=== PATIENT | female | born 1995 | race Two or more races ===

== ENCOUNTER 2025-09-07 23:32 | Inpatient (IN) | payer MEDICAID, SELFPAY ==
[2025-09-07 23:47] VITALS: BP 130/76; PULSE 83; RESP 100; RESP 18; TEMP 36.7; BMI 21.7
[2025-09-07 23:53] VITALS: BP 130/76; PULSE 71; PULSE 74; O2SAT 100
[2025-09-07 23:58] VITALS: PULSE 75; O2SAT 100
[2025-09-08] VITALS (32 sets, daily range): BP systolic 96–147; BP diastolic 58–82; PULSE 63–107; RESP 16–100; TEMP 36.7–37.3; O2SAT 89–99; BMI 21.7
--- NOTE | 2025-09-08 00:22 | XR_ITS ---
Examination: Complete OB ultrasound greater than 14 weeks Date and time of exam: September 08, 2025, 0102 hours INDICATIONS: Pelvic contractions today, labor evaluation Findings: Viable intrauterine single fetus with single amniotic sac presentation cephalic Cardiac motion 157 bpm Placenta maternal left anterior grade 3 Umbilical cord is insertion 3 vessel seen Amniotic fluid index 11.8 cm Cervix not visualized Ovaries obscured by the fetus. Composite estimated gestational age based on BPD, head circumference, abdominal circumference, femur length is 36 weeks 6 days Estimated weight 2715 g. Survey of intracranial anatomy, spinal anatomy, abdominal anatomy, four-chamber heart performed with no abnormalities identified. Impression: Viable intrauterine gestation cephalic presentation.
[2025-09-08 01:01] LABS: Amphetamine/Metham Scrn,Ur OB Negative (Negative); Benzoylecgonine Screen, Ur OB Negative (Negative); Opiate Screen,Urine OB Negative (Negative); THC Screen,Urine OB Negative (Negative)
[2025-09-08] MEDS: Ampicillin Inj 2,000 MG in SODIUM CHLORIDE 0.9% (POP) 100 ML 200 MG IV (02:53)
[2025-09-08 02:57] LABS: Basophils # (Auto) 0.0 Thou/mm3 (0.0-0.2); Basophils % (Auto) 0 % (0-2.5); Eosinophils # (Auto) 0.0 Thou/mm3 (0.0-0.5); Eosinophils % (Auto) 0 % (0-10); Hematocrit 33.8 % (36.0-46.0); Hemoglobin 11.4 g/dL (12.0-16.0); Immature Granulocytes Auto 0.05 Thou/mm3 (0.00-0.00); Lymphocytes # (Auto) 1.6 Thou/mm3 (1.0-4.8); Lymphocytes % (Auto) 18 % (10-50); Mean Corpuscular HGB Conc 33.7 g/dl (31.0-37.0); Mean Corpuscular Hemoglobin 28.6 pg (25.0-35.0); Mean Corpuscular Volume 85 fL (80-100); Monocytes # (Auto) 0.6 Thou/mm3 (0.0-0.8); Monocytes % (Auto) 6 % (0-12); Neutrophils # (Auto) 6.6 Thou/mm3 (1.8-7.7); Neutrophils % (Auto) 75 % (37-80); Nucleated Red Blood Cell # 0.00 Thou/mm3 (0.00-0.00); Nucleated Red Blood Cell % 0 /100 WBC (0); Platelet Count 152 Thou/mm3 (140-440); RDW Standard Deviation 49.1 fL (36.4-46.3); Red Blood Count 3.99 Miln/mm3 (4.00-5.20); White Blood Count 8.9 Thou/mm3 (3.6-11.0)
[2025-09-08] MEDS: fentaNYL CIT INJ 50 mCg/ML AMP 2ML 100 MCG IVP (03:07)
[2025-09-08 03:09] LABS: Hepatitis B Surface Antigen Non Reactive (Non React); Rubella, IgG Antibody Reactive (Immune)
[2025-09-08 03:13] LABS: Syphilis Nonreactive (Nonreactive)
--- NOTE | 2025-09-08 03:38 | PRELIM_ITS ---
Obstetric ultrasound with Doppler. September 08, 2025 0102 hours Clinical history: Transfer of care from [place]. Comparison: None available at the time of this report. Findings: There is a gravid uterus with a live fetus in cephalic presentation of mean gestational age 36 weeks and 6 days (by biometry). cardiac activity is present at a heart rate of 157 beats per minute. The placenta is maternal left/anterior in location, maturity grade 3. There is no evidence of placenta previa or retroplacental hemorrhage. Amniotic fluid is adequate (ROCAEL = 11.8 cm). Estimated weight is 2715 grams. Estimated due date by ultrasound is . No abnormalities by Doppler. The ovaries are not visualized. Impression: Gravid uterus with a single live fetus in cephalic presentation of mean gestational age 36 weeks 6 days. Report Electronically Signed By: Ming Nguyen 09/08/2025 3:37:09 AM [EST]
[2025-09-08] MEDS: LIDOCAINE HCL 1% 20 ML VIAL INFL (04:21)
[2025-09-08] MEDS: OXYTOCIN in NS 20 units 20 UNIT/1,000 ML BAG 125 UNIT IV (04:31)
--- NOTE | 2025-09-08 04:58 | PD.LDDELS ---
Data (Gutierrez) Data Hx Section: No : 1 Term: 0 : 0 Livin Abortions: Spontaneous & Theraputic: 0 Delivery Data (Gutierrez) Labor Data Initiation of labor: Spontaneous Induction/Augmentation Agent: None ROM date: 09/08/25 ROM time: 02:16 Amniotic membrane rupture type: Spontaneous Amniotic fluid description: Moderate Meconium Delivery Data Onset of labor date: 09/07/25 Onset of labor time: 23:00 Complete dilation date: 09/08/25 Complete dilation time: 04:07 delivery date: 09/08/25 delivery time: 04:29 Placenta delivery date: 09/08/25 Placenta delivery time: 04:34 Stage 1 total time: Labor - Stage 1 Duration 5 hours and 7 minutes Delivered by: Pretty Berg Delivery nurse: Jesneia Concepcion RN [place] nurse: Unruly Batres rn Resource Analyst at delivery: No Support person(s) at delivery: maternal friend mckenna Other staff at delivery: Amie Lares RN Delivery Method Delivery method: Normal Vaginal Delivery Presentation: Vertex Anesthesia Type Anesthesia Type: None Placenta Placenta delivery description: Spontaneous Cord blood sent to lab: Yes cord blood collection: Cord Blood Type EBL Estimated blood loss (ml): 150 Umbilical Cord cord description: 3 Vessels Additional Procedures Chelo is a 30yo s/p uncomplicated at 39&0wk after presenting in active labor, delivering at 0429 on 09/08/2025. She progressed without augmentation to C/C/0 at which point she began pushing. She declined epidural. With good maternal pushing efforts, 's head delivered OA and restituted KARRI. Gush of moderately stained meconium. Left anterior shoulder delivered easily followed by posterior shoulder and corpus. Infant had spontaneous cry and was vigorous. Apgars 9/9. Infant placed on maternal abdomen where nose/mouth were suctioned and dried/stimulated. After approximately 2 minutes, cord was clamped x2 and cut by patient's friend. Cord blood collected for typing. With fundal massage and cord traction, placenta delivered spontaneously and intact with 3 vessel centrally inserted cord. Bimanual massage performed and IV pitocin given per protocol with fundus then firm at u-2cm and hemostasis noted. Inspection of perineum and vagina revealed a 1st degree midline perineal laceration that extended up into a left labial laceration which was repaired in routine fashion with 3-0 vicryl after anesthetizing with 1% lidocaine- total reapproximation and hemostasis achieved. Small trickle of blood, so sweep just within cervix/RICKY performed which retrieved a very small amount of clot. All counts correct x2. Mom and were doing well when I left the room. Pretty Berg MD Complications Complications: none Data (Gutierrez) [place] Data order: 1 's gender: Male Identification band number: [id number] 1 minute: 9 5 minutes: 9
--- NOTE | 2025-09-08 05:05 | PD.LDHP ---
Documentation for date of: 09/08/25 OB Labor/Induct. HPI History of Present Illness Chief complaint: contractions : 1 Para: 0 Term pregnancies: 0 pregnancies: 0 Living children: 0 History of Abortions: Spontaneous and Elective: 0 History of Vaginal deliveries: 0 History of sections: No History of : No GREGORY: 09/15/25 Gestational Age (weeks): 39 Gestational Age (days): 0 History of present illness: Patient presents for regular, painful ctx. No LOF. No vaginal bleeding. Normal movement. No fevers/chills. History of Present Adequate Care: Yes (per patient, in [place]) Narrative: Current uncomplicated per patient. She endorses normal glucose testing. Care in [place] Labs Maternal Blood Type: O Pos Labs: Positive: Rubella Titre, Negative: RPR and Hepatitis B and Unknown: HIV, Chlamydia, Gonorrhea, Herpes Type 1, Herpes Type 2, Group Beta Strep and Covid-19 Review of Systems Review of Systems Narrative Review of Systems: Review of Systems Systems Reviewed: All systems reviewed, normal except as documented Constitutional Constitutional: Denies body ache(s), Denies chills, Denies fever(s) and Denies headache(s) ENT Ears, Nose, Mouth, and Throat: Denies headache(s) and Denies vertigo Cardiovascular Cardiovascular: Denies chest pain, Denies palpitations, Denies dyspnea and Denies syncope Respiratory Respiratory: Denies cough, Denies dyspnea Gastrointestinal Gastrointestinal: Denies nausea and Denies vomiting Neurologic Neurologic: Denies convulsions, Denies headache(s), Denies other visual disturbances, Denies syncope and Denies vertigo Past Medical History Family History OTHER FAMILY HX: non-contributory Surgical History SURGICAL: Negative Section OTHER SURGICAL HX: denies all Social History SOCIAL: No tobacco/ETOH/illicit drug use. Recently traveled here from [place]. Past Medical History Comments PMH COMMENT: Current BMI 21, suspect pre- BMI was underweight Meds Home Medications and Allergies Home Medications ?Medication ?Instructions ?Recorded ?Confirmed ?Type vits no.130-ferrous fum 1 tab PO QDAY 09/08/25 09/08/25 History 27 mg iron-folic acid 800 mcg tablet ( Vitamin) Allergies Allergy/AdvReac Type Severity Reaction Status Date / Time No Known Allergies Allergy Verified 09/08/25 01:28 OB Exam Physical Exam Vital signs: Temp Pulse Resp BP Pulse Ox 98.1 F 78 16 118/69 99 09/07/25 23:47 09/08/25 05:01 09/08/25 02:43 09/08/25 05:01 09/08/25 00:53 Narrative: General: well developed, well nourished, no acute distress, conversant Cardiac: normal heart rate Lungs: breathing without distress Abdomen: soft, gravid, non-tender, no rebound or guarding Extremities: no pain with palpation of calves Detailed Labor and Delivery Exam Dilation (cm): 3 Effacement (%): 80 Cervix position: mid station: -2 Presentation: Vertex Membranes: intact monitor accelerations: 15x15 monitor decelerations: None long term variability: Moderate (11-25) Contraction frequency (min): q2-4min OB Results Labs 09/08/25 01:22 Labs: Short CBC 09/08/25 Range/Units 01:22 WBC 8.9 (3.6-11.0) Thou/mm3 Hgb 11.4 L (12.0-16.0) g/dL Hct 33.8 L (36.0-46.0) % Plt Count 152 (140-440) Thou/mm3 OB Assessment & Plan Assessment and Plan (1) Active labor at term: Status: Acute Assessment and plan: Chelo is a 30yo with SIUP at 39&0wk presenting in active labor. Regular/painful contractions, SCE: 3/80/-2. Vitals wnl, benign exam. Reassuring assessment. PMhx/ complicated by: Current BMI 21, suspect pre- BMI was underweight [facility] in [place], no records available to review at time of admission Plan: -Admit to L&D -Establish IV, routine labs including OB panel labs -CEFM -Clear liquid diet -Senior Office Support Assistant Sosa/consent re: -GBS status: unknown. Abx ppx. -Anticipate -Safe to proceed (2) Underweight (BMI < 18.5): Status: Acute (3) 39 weeks gestation of : Status: Acute
[2025-09-08] MEDS: PRENATAL VITAMIN/FE FUM/FA TABLET 1 TAB PO (09:29)
[2025-09-08] MEDS: DOCUSATE SOD 100 MG CAPSULE PO ×2 (09:29→21:31)
[2025-09-08 10:33] LABS: HIV (1&2) Antibody Rapid Non-Reactive
[2025-09-08 11:01] LABS: Basophils # (Auto) 0.0 Thou/mm3 (0.0-0.2); Basophils % (Auto) 0 % (0-2.5); Eosinophils # (Auto) 0.0 Thou/mm3 (0.0-0.5); Eosinophils % (Auto) 0 % (0-10); Hematocrit 33.5 % (36.0-46.0); Hemoglobin 11.1 g/dL (12.0-16.0); Immature Granulocytes Auto 0.06 Thou/mm3 (0.00-0.00); Lymphocytes # (Auto) 1.0 Thou/mm3 (1.0-4.8); Lymphocytes % (Auto) 6 % (10-50); Mean Corpuscular HGB Conc 33.1 g/dl (31.0-37.0); Mean Corpuscular Hemoglobin 28.4 pg (25.0-35.0); Mean Corpuscular Volume 86 fL (80-100); Monocytes # (Auto) 0.6 Thou/mm3 (0.0-0.8); Monocytes % (Auto) 4 % (0-12); Neutrophils # (Auto) 14.4 Thou/mm3 (1.8-7.7); Neutrophils % (Auto) 89 % (37-80); Nucleated Red Blood Cell # 0.00 Thou/mm3 (0.00-0.00); Nucleated Red Blood Cell % 0 /100 WBC (0); Platelet Count 147 Thou/mm3 (140-440); RDW Standard Deviation 49.8 fL (36.4-46.3); Red Blood Count 3.91 Miln/mm3 (4.00-5.20); White Blood Count 16.1 Thou/mm3 (3.6-11.0)
[2025-09-08 14:59] LABS: Chlamydia trachomatis PCR Negative (Not Detect); Neisseria Gonorrhoeae DNA PCR Negative (Not Detect); Trichomonas Negative (Negative)
[2025-09-09 00:20] VITALS: BP 90/58; PULSE 75; RESP 18; TEMP 36.8; O2SAT 96
[2025-09-09 03:57] VITALS: BP 96/59; PULSE 70; RESP 18; TEMP 36.8; O2SAT 97
--- NOTE | 2025-09-09 08:47 | ESPR_ITS ---
Subjective Subjective Interval history: Delivery type: Precipitous vaginal delivery Patient doing well this morning. No acute complaints. Ambulating, tolerating p.o., and voiding without difficulty. HTN/Pre-E screen negative: No CP, SOB, [place], visual changes, RUQ pain. : Yes Lochia: diminishing Bowel: Flatus + / BM + UOP: Adequate Exam Vital Signs Temp Pulse Resp BP Pulse Ox O2 Del Method 98.3 F 70 18 96/59 L 97 Room Air 09/09/25 03:57 09/09/25 03:57 09/09/25 03:57 09/09/25 03:57 09/09/25 03:57 09/09/25 03:57 Constitutional Constitutional: no acute distress Routine HEENT Exam Head: Present normocephalic and atraumatic Eye: Present EOMI and PERRL ENT: Present mucous membranes moist Routine Neck Exam Neck: Present supple and trachea midline Routine Respiratory Exam Respiratory: Present chest non-tender, lungs clear, normal breath sounds and no resp distress Routine Cardiovascular Exam Cardiovascular: Present RRR Routine Abdominal Exam Abdominal: Present soft and normoactive bowel sounds Routine Extremities Exam Extremities: Present full ROM Routine Skin Exam Skin: Present intact, dry and warm Routine Neurological Exam Neurological: Present alert, oriented X3 and CN II-XII intact Routine Psychiatric Exam Psychiatric: Present normal affect and normal thought process Objective Labs 09/08/25 10:50 Labs: Laboratory Results - last 24 hr 09/08/25 09/08/25 09/08/25 01:22 03:46 10:50 WBC 16.1 H D RBC 3.91 L Hgb 11.1 L Hct 33.5 L MCV 86 MCH 28.4 MCHC 33.1 RDW Std Deviation 49.8 H Plt Count 147 Neut % (Auto) 89 H Lymph % (Auto) 6 L [place] % (Auto) 4 Eos % (Auto) 0 Baso % (Auto) 0 Neut # (Auto) 14.4 H Lymph # (Auto) 1.0 [place] # (Auto) 0.6 Eos # (Auto) 0.0 Baso # (Auto) 0.0 Immature Gran # (Auto) 0.06 H Absolute Nucleated RBC 0.00 Immature Gran % 0 Nucleated RBC % 0 Chlam trachomat DNA PCR Negative HIV 1&2 Antibody Rapid Non-Reactive N.gonorrhoeae DNA (PCR) Negative Trichomonas DNA Probe Negative Assessment & Plan Problem List (1) Active labor at term: Status: Acute (2) Underweight (BMI < 18.5): Status: Acute (3) 39 weeks gestation of : Status: Acute (4) Precipitous delivery: Status: Acute Assessment and plan: 1. Continue routine /post-op care 2. Labs reviewed, cbc appropriate 3. Remove dressing/Singh 4. Encourage to ambulate, shower 5. Encourage PO intake, breast feeding Time Spent With Patient Time: Total time spent is greater than 50% in coordination of care (as documented) at patient's floor/unit and/or counseling patient:
--- NOTE | 2025-09-09 08:48 | ESDS_ITS ---
DS: Providers Provider Date of admission: 09/08/25 02:33 Primary care physician: Physician No Primary/Family Admitting Provider: Pretty Berg MD Attending Provider on Admission: Edgar Skelton MD Consults: 09/08/25 04:57 Referral Routine Comment: Attending Provider on DC: Edgar Skelton MD Discharging Provider: Edgar Skelton MD DS: Diagnosis Discharge Diagnosis (1) Precipitous delivery: Status: Acute (2) 39 weeks gestation of : Status: Acute Problem List Completed Was Problem List Reviewed/Reconciled?: Yes Summary/Hosp Course Brief History: Patient presents for regular, painful ctx. No LOF. No vaginal bleeding. Normal movement. No fevers/chills. Peripartum Data Delivery Method: Normal Vaginal Delivery Time Spent with Patient Time attestation: Total time spent providing and/or coordinating discharge services: Exam Vital Signs Temp Pulse Resp BP Pulse Ox O2 Del Method 98.3 F 70 18 96/59 L 97 Room Air 09/09/25 03:57 09/09/25 03:57 09/09/25 03:57 09/09/25 03:57 09/09/25 03:57 09/09/25 03:57 Discharge Plan Plan Patient Disposition: HOME (Self Care) Patient condition on transfer: Stable Prescriptions/Referrals Prescriptions/Med Rec: New docusate sodium 100 mg Capsule 100 mg PO BID 10 Days Qty: 20 0RF ibuprofen 800 mg tablet 800 mg PO Q8H PRN (Reason: See Comments) 10 Days Qty: 20 0RF Continued Vitamin 27 mg iron- 800 mcg tablet 1 tab PO QDAY Referrals: Edgar Skelton MD [Physician, [employer]] No Primary/Family,Physician [Primary Care Provider] Patient/Caregiver Discharge Instructions Discharge Activity: activity as tolerated Other Discharge Activity Instructions:: vaginal rest and no heavy lifting more than 10 pounds for 6 weeks Other Discharge Diet Instructions: regular diet Education Materials: After a Vaginal Print Language: Vietnamese Activity Restrictions/Additional Instructions: follow up with obgyn in 4 to 6 weeks for visit, will need to establish care in local area Stand Alone Forms: [facility] Award Info., Patient Portal Info Letter Discharge Order Discharge Orders: Discharge (Routine); Ordered 09/09/25 Ordered By: Edgar Skelton Planned Discharge Date 09/09/25
[2025-09-09 09:00] VITALS: BP 101/62; PULSE 76; RESP 18; TEMP 36.7; O2SAT 97
[2025-09-09] MEDS: PRENATAL VITAMIN/FE FUM/FA TABLET 1 TAB PO (09:55)
[2025-09-09] MEDS: DOCUSATE SOD 100 MG CAPSULE PO (09:55)
[2025-09-09 12:00] VITALS: BP 103/65; RESP 18; TEMP 36.5; O2SAT 98
== END 2025-09-09 11:45 | disposition home or self-care (01) | DRG 560 ==
LOC: S4SX 09-08 06:56 → S4NX 09-08 07:10
PROVIDERS: Admitting Provider Obstetrics & Gynecology; Visit Provider Obstetrics & Gynecology
DX: O77.0 Labor and delivery complicated by meconium in amniotic fluid (principal); Z37.0 Single live birth; O62.3 Precipitate labor; O70.0 First degree perineal laceration during delivery; Z3A.39 39 weeks gestation of pregnancy
CPT/HCPCS: 36415; 59025; 59409; 59899; 76805; 80307; 85025; 86703; 86762; 86780; 86850; 86900; 86901; 87340; 87491; 87591; 87661; J0290; J2590; J3010; J3490; A9270